=== PATIENT | male | born 1975 | race Caucasian/White ===

== ENCOUNTER 2016-08-22 13:49 | Emergency (ER) | payer BC ==
[~2016-08-22] VITALS: Ht 165.1 cm; Wt 80.0 kg
[~2016-08-22 13:49] MED LIST: LISI10TA PO; PROT40TA PO; SUCR1S PO; ULTR50TA PO
[2016-08-22 13:52] VITALS: BP 184/104; PULSE 80; RESP 20; TEMP 98.3; O2SAT 98
[2016-08-22] MEDS ORDERED: LISI10TA3 PO (14:03)
--- NOTE | 2016-08-22 14:11 | PD ---
HPI Chief Complaint: Laceration/Skin Injury Time Seen by Provider: 14:11 Travel History International Travel<30 days: No Contact w/Intl Traveler<30days: No Traveled to known affect area: No History of Present Illness HPI 41-year-old male presents to the emergency Department with complaint of a laceration to his right middle finger that occurred today. He said he picked up something off the floor and didn't realize it was a razor blade and it flung around and cut his finger. He does not know when his last tetanus vaccination was. He denies paresthesias, loss of sensation, decreased range of motion, decreased strength to the affected finger. Denies fever, chills, nausea or vomiting. Has not taken any medication or drainage from his to alleviate his symptoms. Has applied pressure to control bleeding. History of hypertension. Takes lisinopril. Did take his medication this morning. No known allergies. No other modifying factors or associated signs and symptoms. PFSH Past Medical History Cancer: No Cardiovascular Problems: Yes High Cholesterol: Yes (EXERCISE AND DIET CONTROLLED) Chest Pain: No Congestive Heart Failure: No Endocrine: No Gastrointestinal Disorders: No Genitourinary: No Hypertension: Yes Immune Disorder: No Implanted Vascular Access Dvce: No Musculoskeletal: No Neurologic: No Psychiatric: No Reproductive: No Pancreatitis: Yes (2011) Tetanus Vaccination: > 5 Years Past Surgical History Surgical History: No Previous Surgery Other Surgery: No Social History Alcohol Use: Yes (SOCIAL) Tobacco Use: No Substance Use: No Allergies-Medications (Allergen,Severity, Reaction): Coded Allergies: No Known Allergies (Verified , 08/22/16) Reported Meds & Prescriptions Reported Meds & Active Scripts Active Keflex (Cephalexin) 500 Mg Cap 500 Mg PO Q8H 7 Days Ibuprofen 800 Mg Tab 800 Mg PO Q6HR PRN Reported Lisinopril 10 Mg Tab 10 Mg PO DAILY Review of Systems Except as stated in HPI: all other systems reviewed are Neg Physical Exam Narrative GENERAL: Well-nourished, well-developed male patient, in no acute distress SKIN: Warm and dry. Approximately 1.5cm x 1.5 cm L-shaped laceration to the anterior, distal aspect of the right third digit; with minimal amount of bright red drainage; without erythema, edema; sensory intact; less than 3 second cap refill; finger with full range of motion and good apposition. HEAD: Atraumatic. Normocephalic. EYES: Pupils equal and round. No scleral icterus. No injection or drainage. ENT: Mucosa pink and moist. Airway patent. NECK: Trachea midline. CARDIOVASCULAR: Regular rate. RESPIRATORY: No accessory muscle use. GASTROINTESTINAL: Flat. MUSCULOSKELETAL: No obvious deformities. No clubbing. No cyanosis. No edema. NEUROLOGICAL: Awake and alert. Oriented 3. No obvious cranial nerve deficits. Motor grossly within normal limits. Normal speech. PSYCHIATRIC: Appropriate mood and affect; insight and judgment normal. Data Data Last Documented VS Vital Signs Date Time Temp Pulse Resp B/P Pulse Ox O2 Delivery O2 Flow Rate FiO2 08/22/16 13:52 98.3 80 20 184/104 98 Room Air Orders Finger ([id number]) (08/22/16 ) Tetanus/Diphtheria Tox Adult (Tetanus/Di (08/22/16 14:15) Bupivacaine Pf 0.5% Inj (Marcaine Pf 0.5 (08/22/16 14:15) Lidocaine 1% Inj (50 Ml) (Xylocaine 1% I (08/22/16 14:15) MDM Medical Decision Making Medical Screen Exam Complete: Yes Emergency Medical Condition: Yes Medical Record Reviewed: Yes Differential Diagnosis Laceration, contusion, abrasion Narrative Course 41-year-old male with laceration to the distal aspect of the right third digit. Tetanus updated in the ER. See my procedure note for laceration repair. Patient has history of hypertension and took his lisinopril this morning. Denies symptoms of high blood pressure. Finger x-ray ordered. 1450: Right middle finger x-ray concludes No acute osseous injury or radiopaque foreign body. Ibuprofen and Keflex prescribed for home. Instructed patient to return to the emergency department or follow-up with primary care in 7-10 days for suture removal. Patient is medically cleared and stable for discharge. Discussed reasons to return to the emergency department. Instructed patient to follow up with primary care provider. Patient agrees with treatment plan. The patients vital signs are stable and the patient is stable for outpatient follow-up and treatment. Patient discharged home, stable and in no acute distress. Procedures Procedure Narrative LACERATION LOCATION: Anterior distal aspect of the right hand third digit LENGTH: L-shaped approximately 1.5 cm x 1.5cm NUMBER OF STITCHES/LEIGHANN: 7 simple interrupted stitches REPAIR: The area of the laceration was prepped with Betadine and sterilely draped. The right hand third digit was digitally blocked with 0.5% bupivacaine and 1% lidocaine. The wound was copiously irrigated and explored without evidence of foreign body, tendon injury or neurovascular injury. The wound was closed using 4-0 Prolene. This was a single layer repair. A sterile dressing was applied. The patient was advised to keep the dressing clean and dry. Patient tolerated the procedure well. Diagnosis Primary Impression: Laceration of finger of right hand Qualified Code: S61.219A - Laceration of finger of right hand, initial encounter Referrals: Primary Care Physician Patient Instructions: Care For Your Stitches (ED), Finger Laceration (ED), General Instructions Additional Instructions: Keep area clean and dry Limit right hand middle finger activity to decrease risk of sutures coming undone Ibuprofen or Tylenol as directed and as needed for pain/inflammation Ice pack to area as needed to decrease pain Return to the emergency department or follow-up with your primary care provider in 7-10 days for suture removal Return to the emergency department immediately with worsening of symptoms Med/Other Pt SpecificInfo: Prescription(s) given Scripts Cephalexin (Keflex)500 Mg [id number] Mg PO Q8H 7 Days Ref 0 Prov:Kylah Sheehan 08/22/16 Ibuprofen 800 Mg Vth469 Mg PO Q6HR PRN (PAIN) #30 TAB Ref 0 Prov:Kylah Sheehan 08/22/16 Disposition: 01 DISCHARGE HOME Condition: Stable Kylah Sheehan Aug 22, 2016 14:11
[2016-08-22] MEDS ORDERED: BUPIVACAINE HCL PF 0.5% 10 ML VIAL INFIL ONE (14:15)
[2016-08-22] MEDS ORDERED: TETANUS/DIPHTHERIA TOXOID ADULT 0.5 ML VIAL IM ONE (14:15)
[2016-08-22] MEDS ORDERED: LIDOCAINE HCL 1% 50 ML VIAL INFIL ONE (14:15)
[2016-08-22] MEDS ORDERED: IBUP800T23 PO (14:20)
[2016-08-22] MEDS ORDERED: CEPH-460 PO (14:20)
--- NOTE | 2016-08-22 14:41 | RADRPT ---
EXAM DATE/TIME: 08/22/2016 14:29 [facility] COMPARISON: No previous studies available for comparison. INDICATIONS : Patient cut third digit on right hand with razor blade and hour ago. MEDICAL HISTORY : None. SURGICAL HISTORY : None. ENCOUNTER: Initial ACUITY: 1 day PAIN SCORE: 0/10 LOCATION: Right Third digit right hand FINDINGS: Examination of the third digit of the right hand demonstrates no evidence of fracture or dislocation. No radiopaque foreign bodies are seen. The soft tissues are intact. CONCLUSION: No acute osseous injury or radiopaque foreign body. John Burnette MD on August 22, 2016 at 14:39 Board Certified Radiologist. This report was verified electronically.
== END 2016-08-22 15:45 | disposition home or self-care (01) ==
LOC: NEPB 13:49
DX: S61.212A Laceration without foreign body of right middle finger without damage to nail, initial encounter (principal); I10 Essential (primary) hypertension; Z23 Encounter for immunization; W45.8XXA Other foreign body or object entering through skin, initial encounter; Y93.9 Activity, unspecified; Y92.9 Unspecified place or not applicable
CPT/HCPCS: 12002; 73140; 90471; 90714

== ENCOUNTER 2016-09-02 08:26 | Emergency (ER) | payer BC ==
[~2016-09-02] VITALS: Ht 165.1 cm; Wt 80.0 kg
[~2016-09-02 08:26] MED LIST changes: +CEPH-460 PO; +IBUP800T23 PO; -LISI10TA PO; +LISI10TA3 PO; -PROT40TA PO; -SUCR1S PO; -ULTR50TA PO
[2016-09-02 08:28] VITALS: BP 165/98; PULSE 77; RESP 15; TEMP 98.1; O2SAT 99
--- NOTE | 2016-09-02 08:59 | PD ---
HPI Chief Complaint: Wound/Suture/Staple Re-Check Time Seen by Provider: 08:57 Travel History International Travel<30 days: No Contact w/Intl Traveler<30days: No Traveled to known affect area: No History of Present Illness HPI 41-year-old male presents to the emergency department for suture removal to his right middle finger. Sutures been in place since August 22. Denies fever, chills, nausea, vomiting. Denies paresthesias or loss of sensation, decreased range of motion, decreased strength to affected finger. No known allergies. No modifying factors or associated signs and symptoms. PFSH Past Medical History Cancer: No Cardiovascular Problems: Yes High Cholesterol: Yes (EXERCISE AND DIET CONTROLLED) Chest Pain: No Congestive Heart Failure: No Endocrine: No Gastrointestinal Disorders: No Genitourinary: No Hypertension: Yes Immune Disorder: No Implanted Vascular Access Dvce: No Musculoskeletal: No Neurologic: No Psychiatric: No Reproductive: No Pancreatitis: Yes (2011) Past Surgical History Other Surgery: No Social History Alcohol Use: Yes (SOCIAL) Tobacco Use: No Substance Use: No Allergies-Medications (Allergen,Severity, Reaction): Coded Allergies: No Known Allergies (Verified , 09/02/16) Reported Meds & Prescriptions Reported Meds & Active Scripts Active Keflex (Cephalexin) 500 Mg Cap 500 Mg PO Q8H 7 Days Ibuprofen 800 Mg Tab 800 Mg PO Q6HR PRN Reported Lisinopril 10 Mg Tab 10 Mg PO DAILY Review of Systems Except as stated in HPI: all other systems reviewed are Neg Physical Exam Narrative GENERAL: Well-nourished, well-developed male patient, in no acute distress SKIN: Warm and dry. Right middle finger with laceration that is well approximated and sutures intact; without erythema, edema, drainage. No signs of infection. HEAD: Atraumatic. Normocephalic. EYES: Pupils equal and round. No scleral icterus. No injection or drainage. ENT: Mucosa pink and moist. Airway patent. NECK: Trachea midline. CARDIOVASCULAR: Regular rate. RESPIRATORY: No accessory muscle use. GASTROINTESTINAL: Flat. MUSCULOSKELETAL: No obvious deformities. No clubbing. No cyanosis. No edema. NEUROLOGICAL: Awake and alert. Oriented 3. No obvious cranial nerve deficits. Motor grossly within normal limits. Normal speech. PSYCHIATRIC: Appropriate mood and affect; insight and judgment normal. Data Data Last Documented VS Vital Signs Date Time Temp Pulse Resp B/P Pulse Ox O2 Delivery O2 Flow Rate FiO2 09/02/16 08:28 98.1 77 15 165/98 99 MDM Medical Decision Making Medical Screen Exam Complete: Yes Emergency Medical Condition: Yes Medical Record Reviewed: Yes Differential Diagnosis Suture removal, wound recheck, medical clearance Narrative Course 41-year-old male with well approximated laceration and sutures intact to the right middle finger. No signs of infection. Sutures removed and the wound slightly opened with minimal bleeding. The patient has been keeping the laceration moist with antibiotic ointment, covered, and closed to air. Steri- Strips applied and instructed patient to keep Steri-Strips in place and laceration clean and dry for approximately 3-5 days and he verbalized understanding and agreement. Patient is medically cleared and stable for discharge. Discussed reasons to return to the emergency department. Instructed patient to follow up with primary care provider. Patient agrees with treatment plan. The patients vital signs are stable and the patient is stable for outpatient follow-up and treatment. Patient discharged home, stable and in no acute distress. Diagnosis Primary Impression: Encounter for removal of sutures Referrals: Primary Care Physician Patient Instructions: General Instructions, Steristrips (ED), Stitches Removal (ED) Departure Forms: Tests/Procedures, Work Release Enter return to work date: Sep 03, 2016 Additional Instructions: Keep area clean and dry Follow-up with primary care provider Return to the emergency department immediately with worsening of symptoms Med/Other Pt SpecificInfo: No Meds Exist/No RX given Disposition: 01 DISCHARGE HOME Condition: Stable Kylah Sheehan Sep 02, 2016 08:59
== END 2016-09-02 09:12 | disposition home or self-care (01) ==
LOC: NEPB 08:26
DX: Z48.02 Encounter for removal of sutures (principal)
CPT/HCPCS: 99281